=== PATIENT | female | born 1950 | race Caucasian/White ===

== ENCOUNTER 2024-10-26 11:04 | Day surgery (SDC) | payer MEDICARE ==
[2024-10-19 15:06] LABS: MEAN PLATELET VOLUME 6.7 FL (7.4-10.4); PRE OP HEMATOCRIT 39.2 % (35.0-45.0); PRE OP HEMOGLOBIN 13.3 g/dL (12.0-16.0); PRE OP PLATELET COUNT 424 X10'3 (140-440); PRE OP WHITE BLOOD COUNT 12.4 10'3 (4.8-10.8); RED CELL DISTRIBUTION WIDTH 13.9 % (11.5-14.5)
--- NOTE | 2024-10-19 15:08 | ELECTROCARDIOGRAPH REPORT ---
[facility] Test Date: 2024-10-19 Test Time: 15:03:04 Pat Name: EMILY OZUNA Department: [facility]-PRE-OP Patient ID: [id number] Room: Gender: F [employer] Vendor: : 1950 Requested By: KITA FRANCISCO Order Number: [id number] Reading MD: Dr. CARLOS A Sunshine Measurements Intervals [place] Rate: 88 P: 50 MT: 140 QRS: 22 QRSD: 79 T: 49 QT: 346 QTc: 419 Interpretive Statements Sinus rhythm Abnormal R-wave progression, early transition Electronically Signed On 10-20-2024 17:31:[address] CARLOS A Sunshine Please click the below link to view image of tracing.
[2024-10-19 15:21] LABS: CREATININE 0.86 MG/DL (0.40-0.90); PRE OP ALT 46 U/L (30-65); PRE OP ANION GAP 10 (8-16); PRE OP AST 26 U/L (10-37); PRE OP BILIRUB, TOTAL 0.5 MG/DL (0.0-1.0); PRE OP GLUCOSE 142 MG/DL (70-104); PRE OP POTASSIUM 4.4 MMOL/L (3.4-5.1); PRE OP SODIUM 137 MMOL/L (135-145); TOTAL CARBON DIOXIDE 23.5 MMOL/L (24-32); eGFR 65 ML/MIN
[2024-10-19 15:39] LABS: LYMPHOCYTES % (MANUAL) 10.0 % (21-51); METAMYLEOCYTES% (MANUAL) 1.0 % (0-0); MONOCYTES % (MANUAL) 2.0 % (2-12); NEUTROPHILS % (MANUAL) 87.0 % (42-75); PLATELET ESTIMATE NORMAL
[~2024-10-26] VITALS: Ht 166.4 cm; Wt 79.4 kg
[2024-10-26] VITALS (15 sets, daily range): BP systolic 96–134; BP diastolic 49–79; PULSE 70–96; RESP 10–19; TEMP 98.2; O2SAT 92–96
[~2024-10-26 11:04] MED LIST: ASPI-1674 PO; CALCIUM/VIT D3 PO; CLARITIN PO; DULO30CA52 PO; DULO60CA65 PO; GAS-X PO; IBUP-1985 PO; IRON PO; METF-436 PO; OMEP40CA21 PO; PRE5T PO; PREDNISONE; TENA50TA PO; TIZA-189 PO; [UNRECOGNIZED DRUG - MIXTURE] PO; ceFAZolin 2gm/dext,iso 50mL 50 ML IV ONE; hydrocortisone sod succ/PF 100mg/2ml inj. IV ONE
[2024-10-26] MEDS: INDOCYANINE GREEN 25 MG/10 ML VIAL IV ONE (11:33)
[2024-10-26] MEDS: ringers solution, lacted 1,000 ML IV SCH (11:35)
[2024-10-26] MEDS ORDERED: BUPIVAcaine 2.5mg/ml inj 50ml vial (contains preservative) ONE (12:09)
[2024-10-26] MEDS ORDERED: LIDOcaine 1% 30ml preserv. free vial ONE (12:09)
[2024-10-26] MEDS ORDERED: midazolam 1 mg/ML 2ml injection ONE (12:22)
[2024-10-26] MEDS ORDERED: fentaNYL/PF 50MCG/1 ML 2ML syringe ONE (12:22)
[2024-10-26] MEDS ORDERED: LIDOcaine 1%/PF 5ML 10 MG/ML VIAL ONE (12:27)
[2024-10-26] MEDS ORDERED: ondansetron/PF 4mg/2ml inj ONE (12:27)
[2024-10-26] MEDS ORDERED: rocuronium 10mg/ml inj IV ONE (12:27)
[2024-10-26] MEDS ORDERED: propofol inj 20 ML IV ONE (12:28)
[2024-10-26] MEDS: BUPIVAcaine/PF 2.5 mg/ml (0.25%) 30ml vial IJ ONE (12:39)
[2024-10-26] MEDS ORDERED: labetalol 20mg/4ml (5mg/ml) syringe IV PRN (12:50)
[2024-10-26] MEDS ORDERED: morphine 4 MG/ML inj SYRINge IV PRN (12:50)
[2024-10-26] MEDS ORDERED: fentaNYL/PF 50MCG/1 ML 2ML syringe IV PRN ×2 (12:50)
[2024-10-26] MEDS ORDERED: hydrALAZINE 20mg/ml inj. IV PRN (12:50)
[2024-10-26] MEDS ORDERED: ondansetron/PF 4mg/2ml inj IV PRN (12:50)
[2024-10-26] MEDS ORDERED: ringers solution, lacted 1,000 ML IV SCH (12:50)
[2024-10-26] MEDS ORDERED: labetalol 20mg/4ml (5mg/ml) syringe IV ONE (13:00)
--- NOTE | 2024-10-26 13:31 | OPERATIVE REPORT ---
Operative Report Providers to CC CC: MATEO FRANCISCO MD ~ Date of Procedure: Oct 26, 2024 Pre-Operative Diagnosis: Biliary hyperkinesia Post-Operative Diagnosis SAME as PRE-Op Procedure Performed Robotic assisted, laparoscopic cholecystectomy 2 cm umbilical hernia repair Surgeon: Mateo Francisco MD FACS Machine Scallop Cutter None Anesthesiologist: Isma Xiong Type of Anesthesia: General Findings: Clear visualization of the gallbladder, cystic duct and pertinent anatomy Critical view of safety obtained Wound Class III Complications None Prosthetics\Implants used: None Estimated Blood Loss: Minimal Specimen Removed: Gallbladder Description of Procedure: Patient was brought to the operating room and identified by the nursing staff and the attending physician. Patient was placed supine and general anesthesia was induced. A supraumbilical, midline incision was made, long enough to accommodate a 12 mm Caba port. Hernia sac was encountered. This had herniated omentum which was mobilized and reduced. Fascial edges were freshened and the defect was used for Caba port placement. Caba technique was used to gain entry into the abdomen. Stay sutures were placed in the Caba port anchored to the fascia. Abdomen was insufflated without incident. Laparoscope was inserted and the abdomen surveyed. Secondary, 8.5 mm robotic trochars were placed in the left upper quadrant and right lateral abdomen. Robotic arm was docked to the patient. Robotic instruments were guided intra- abdominally under laparoscopic visualization. Fundus of the gallbladder was grasped and retracted over the dome of the liver. Infundibulum was retracted towards the right lower quadrant. Firefly technology was used to obtain a fluorescent cholangiogram and visualize the pertinent anatomy. Cystic duct was clearly visualized. Peritoneum overlying the triangle was incised with hook electrocautery. This allowed for circumferential dissection of the cystic duct and artery. Critical view of safety was obtained. Duct and artery were then clipped with hemo-lock clips and both structures divided. Gallbladder was retracted laterally and dissected out of the gallbladder fossa. Small rent in the gallbladder wall led to small spillage of bile. This was sponge with a Ray-Gene which was then removed. Gallbladder was set aside and fluorescent cholangiogram of the gallbladder fossa was used to confirm no evidence of bile leak. Gallbladder was placed in a laparoscopic retrieval bag. Secondary trochars were removed and the abdomen allowed to deflate. Caba port was removed with the specimen in its retrieval bag. Fascia at the umbilical port site was closed with a combination of 0 Ethibond and 0 Vicryl sutures. Skin was closed with 4-0 Monocryl sutures in a subcuticular fashion 40 cc of local anesthetic was used during the case. Sterile dressings were applied. Patient was awakened and taken to the postanesthesia care unit in stable condition. Counts repoted as correct: Yes MATEO FRANCISCO MD Oct 26, 2024 13:31
[2024-10-26] MEDS: oxyCODONE/APAP 5-325mg tablet PO PRN (15:34)
--- NOTE | 2024-10-31 13:36 | PATHOLOGY REPORT ---
[facility] [address] [place] [address] SURGICAL PATHOLOGY REPORT CaseNumber: [id number] Surgeon:Mateo Arreola P.A.-C CLINICAL INFORMATION CLINICAL INFORMATION: Cholelithiasis. DIAGNOSIS DIAGNOSIS: GALLBLADDER; CHOLECYSTECTOMY - MILD CHRONIC CHOLECYSTITIS. MICROSCOPIC DESCRIPTION MICROSCOPIC DESCRIPTION: One slide is examined. Sections of the gallbladder show evidence of chronic cholecystitis. The underlying connective tissue contains a mild chronic inflammatory infiltrate. Pre- malignant or malignant change is not observed. Acute inflammation, ulceration, or abscess formation i s not observed. (st) GROSS DESCRIPTION GROSS DESCRIPTION: Received in a container of formalin labeled with the patient's name, number, and " gallbladder" is an intact gallbladder which measures 7.5 cm long by 3 cm in diameter. The serosa is s mooth and singer. The surgical bed is unremarkable. Sectioning reveals a moderate amount of viscous dark green bile but no stones. The specimen container is strained and no stones are found. The mucosa is red and granular. A discrete mass lesion is not identified. The wall of the gallbladder measures up to 0.3 cm thick. Rack Puncher sections of the neck and wall of the gallbladder are submitted as A1 .The time at which the specimen was removed was 1313. The time at which the specimen was placed in [facility] was not provided. (meb) Electronically signed by: Kian Ortiz M.D. 10/31/2024 1:07:00 PM
== END 2024-10-26 15:52 | disposition home or self-care (01) ==
LOC: PAS 11:04
PROVIDERS: ATTEND Surgery
DX: K81.1 Chronic cholecystitis (principal); K42.9 Umbilical hernia without obstruction or gangrene; E11.9 Type 2 diabetes mellitus without complications; F41.8 Other specified anxiety disorders; I25.10 Atherosclerotic heart disease of native coronary artery without angina pectoris; I25.2 Old myocardial infarction; Z90.710 Acquired absence of both cervix and uterus; Z79.82 Long term (current) use of aspirin; Z98.49 Cataract extraction status, unspecified eye; F32.A Depression, unspecified; F41.9 Anxiety disorder, unspecified; D64.9 Anemia, unspecified; Z98.890 Other specified postprocedural states; Z79.899 Other long term (current) drug therapy
CPT/HCPCS: 36415; 47563; 49591; 80053; 82948; 85025; 93005; A4215; A4615; A4618; A7000; J1100; J2003; J2250; J2405; J2704; J2710; J3010; J3490; J7030; J7120; Z7506; Z7508; Z7512; Z7610; 85007; 88304